=== PATIENT | male | born 1960 | race Caucasian/White ===

== ENCOUNTER 2016-08-18 23:14 | Observation (INO) | payer OTHER ==
[~2016-08-18] VITALS: Ht 175.3 cm; Wt 86.9 kg
[~2016-08-18 23:14] MED LIST: AMBIEN10 MG PO; ASPIR 8181 M1 PO; ATORVASTATIN CA80 MG PO; Aspirin E.C. PO; BRILINTA90 MG PO; DESYREL 150 MG150 MG PO; GEODON80 MG PO; GLUCOPHAGE1000 MG PO; IBUPROFEN800 MG PO; LIPITOR80 MG PO; LISINOPRIL5 MG PO; LOPRESSOR25 MG PO; MOTRIN800 MG PO; NITROSTAT0.4 MG SL; NORCO 5/3251 TABLET PO; NORCO 7.5/321 TABLET PO; SEROQUEL12.5 MG PO; TEGRETOL200 MG PO; ZOLOFT25 MG PO; sleeping med PO
[2016-08-18 23:34] LABS: HEMATOCRIT 36.4 % (38.0-50.0); MCH 32.9 PG (29.0-34.0); MCHC 35.4 G/DL (30.0-36.0); MCV 92.9 FL (86-99); PLATELET COUNT 202 K/uL (156-360); RBC DIS.WIDTH-CV 13.6 % (11.8-14.6); RBC DIS.WIDTH-SD 45.1 % (39-53); RED BLOOD COUNT 3.92 M/uL (4.00-5.50); WHITE BLOOD COUNT 8.2 K/uL (4.1-10.2)
[2016-08-18 23:42] LABS: CHLORIDE 106 mEq/L (99-109); POTASSIUM 3.9 mEq/L (3.7-5.4); SODIUM 138 mEq/L (136-147)
[2016-08-18 23:44] LABS: GLUCOSE 87 mg/dL (70-99)
[2016-08-18 23:46] LABS: ANION GAP 12 MEQ/L (2-14)
[2016-08-18 23:48] LABS: GFR ESTIMATE (CALCULATED) > 59 mL/min/
[2016-08-18 23:49] LABS: UREA NITROGEN (BUN) 15 mg/dL (9-23)
[2016-08-18 23:55] LABS: TROP-I INTERPRETATION NEGATIVE; TROPONIN-I < 0.01 ng/mL (0.0-0.30)
[2016-08-19 02:40] LABS: TOTAL BILIRUBIN 0.3 mg/dL (0.0-1.0)
[2016-08-19 02:41] LABS: ALKALINE PHOSPHATASE 88 IU/L (3-129)
[2016-08-19 02:44] LABS: DIRECT BILIRUBIN 0.1 mg/dL (0.0-0.3)
[2016-08-19 02:45] LABS: LIPASE 36 U/L (1.0-51.0)
[2016-08-19 04:26] VITALS: BP 117/56
[2016-08-19 06:33] LABS: TROP-I INTERPRETATION NEGATIVE; TROPONIN-I < 0.01 ng/mL (0.0-0.30)
[2016-08-19] MEDS ORDERED: NITROSTAT0.4 MG SL (08:22)
[2016-08-19] MEDS ORDERED: LOPRESSOR25 MG PO (08:22)
[2016-08-19] MEDS ORDERED: LIPITOR80 MG PO (08:22)
[2016-08-19] MEDS ORDERED: LISINOPRIL5 MG PO (08:23)
[2016-08-19] MEDS ORDERED: SEROQUEL12.5 MG PO (08:23)
[2016-08-19] MEDS ORDERED: ASPIR 8181 M1 PO (08:23)
[2016-08-19] MEDS ORDERED: GLUCOPHAGE1000 MG PO (08:24)
[2016-08-19 08:48] VITALS: BP 160/77
== END 2016-08-19 08:57 | disposition left against medical advice (07) ==
LOC: EME → EDBD 23:14 → EME 23:14 → EDOF 08-19 02:08 → 5WEST 08-19 02:53
PROVIDERS: Emergency Medicine; Hospitalist
DX: R07.9 Chest pain, unspecified (principal); I25.10 Atherosclerotic heart disease of native coronary artery without angina pectoris; I25.82 Chronic total occlusion of coronary artery; I25.2 Old myocardial infarction; Z98.61 Coronary angioplasty status; I10 Essential (primary) hypertension; E78.5 Hyperlipidemia, unspecified; E11.9 Type 2 diabetes mellitus without complications; J44.9 Chronic obstructive pulmonary disease, unspecified; F17.210 Nicotine dependence, cigarettes, uncomplicated; Z91.19 Patient's noncompliance with other medical treatment and regimen; Z59.0 Homelessness; Z82.49 Family history of ischemic heart disease and other diseases of the circulatory system; Z82.0 Family history of epilepsy and other diseases of the nervous system; Z80.9 Family history of malignant neoplasm, unspecified
CPT/HCPCS: 71020; 80048; 80076; 82948; 83690; 83880; 84484; 85027; 93005; 99281; 99285; G0378; J1644; J1815

== ENCOUNTER 2016-09-10 04:49 | Observation (INO) | payer OTHER ==
[~2016-09-10] VITALS: Ht 172.7 cm; Wt 87.6 kg
[2016-09-10 05:19] LABS: CHLORIDE 105 mEq/L (99-109); SODIUM 139 mEq/L (136-147)
[2016-09-10 05:21] LABS: GLUCOSE 162 mg/dL (70-99)
[2016-09-10 05:22] LABS: ANION GAP 11 MEQ/L (2-14)
[2016-09-10 05:25] LABS: GFR ESTIMATE (CALCULATED) > 59 mL/min/
[2016-09-10 05:26] LABS: HEMATOCRIT 37.3 % (38.0-50.0); MCHC 34.6 G/DL (30.0-36.0); MCV 92.6 FL (86-99); MEAN PLAT.VOLUME 9.2 uM^3 (9.0-12.4); PLATELET COUNT 215 K/uL (156-360); RBC DIS.WIDTH-CV 12.5 % (11.8-14.6); RBC DIS.WIDTH-SD 40.9 % (39-53); RED BLOOD COUNT 4.03 M/uL (4.00-5.50); UREA NITROGEN (BUN) 11 mg/dL (9-23); WHITE BLOOD COUNT 8.8 K/uL (4.1-10.2)
[2016-09-10 05:29] LABS: TROP-I INTERPRETATION NEGATIVE; TROPONIN-I 0.01 ng/mL (0.0-0.30)
[2016-09-10 11:59] VITALS: BP 151/54
== END 2016-09-10 12:00 | disposition left against medical advice (07) ==
LOC: EME 04:49 → EDOF 05:53
PROVIDERS: Emergency Medicine
DX: I25.119 Atherosclerotic heart disease of native coronary artery with unspecified angina pectoris (principal); I25.82 Chronic total occlusion of coronary artery; Z98.61 Coronary angioplasty status; E11.9 Type 2 diabetes mellitus without complications; I10 Essential (primary) hypertension; E78.5 Hyperlipidemia, unspecified; F17.210 Nicotine dependence, cigarettes, uncomplicated; J44.9 Chronic obstructive pulmonary disease, unspecified; Z82.49 Family history of ischemic heart disease and other diseases of the circulatory system; Z82.0 Family history of epilepsy and other diseases of the nervous system; Z59.0 Homelessness
CPT/HCPCS: 71020; 80048; 83880; 84484; 85027; 93005; 99281; 99285; G0378; J1644; J7030

== ENCOUNTER 2016-12-01 02:12 | Observation (INO) | payer OTHER ==
[~2016-12-01] VITALS: Ht 175.3 cm; Wt 90.5 kg
[2016-12-01 02:59] LABS: HEMATOCRIT 38.5 % (38.0-50.0); MCH 29.8 PG (29.0-34.0); MCV 87.5 FL (86-99); MEAN PLAT.VOLUME 9.6 uM^3 (9.0-12.4); PLATELET COUNT 192 K/uL (156-360); RBC DIS.WIDTH-CV 13.3 % (11.8-14.6); RBC DIS.WIDTH-SD 42.9 % (39-53); WHITE BLOOD COUNT 8.5 K/uL (4.1-10.2)
[2016-12-01 03:10] LABS: CHLORIDE 103 mEq/L (99-109); POTASSIUM 3.7 mEq/L (3.7-5.4); SODIUM 135 mEq/L (136-147)
[2016-12-01 03:13] LABS: GLUCOSE 245 mg/dL (70-99)
[2016-12-01 03:14] LABS: ANION GAP 10 MEQ/L (2-14)
[2016-12-01 03:15] LABS: TOTAL BILIRUBIN 0.4 mg/dL (0.0-1.0)
[2016-12-01 03:16] LABS: ALKALINE PHOSPHATASE 81 IU/L (3-129); GFR ESTIMATE (CALCULATED) > 59 mL/min/; INTER. NORMALIZED RATIO 1.2; PROTHROMBIN TIME 12.2 (9.2-11.2); PTT 26.9 (25-32)
[2016-12-01 03:17] LABS: UREA NITROGEN (BUN) 19 mg/dL (9-23)
[2016-12-01 03:18] LABS: TROP-I INTERPRETATION NEGATIVE; TROPONIN-I < 0.01 ng/mL (0.0-0.30)
[2016-12-01 03:20] LABS: LIPASE 38 U/L (1.0-51.0)
[2016-12-01] MEDS ORDERED: LISINOPRIL5 MG PO (07:19)
[2016-12-01] MEDS ORDERED: ATORVASTATIN CA80 MG PO (07:19)
[2016-12-01] MEDS ORDERED: LO-DOSE ASPIRIN81 M2 PO (07:20)
[2016-12-01] MEDS ORDERED: ISOSORBIDE MONO30 MG PO (07:21)
[2016-12-01] MEDS ORDERED: CARVEDILOL12.5 MG PO (07:21)
[2016-12-01 08:00] VITALS: BP 116/58
[2016-12-01] MEDS ORDERED: ISOSORBIDE MONO60 MG PO (09:27)
== END 2016-12-01 11:11 | disposition left against medical advice (07) ==
LOC: EME → EDBD 02:12 → EDOF 06:55 → 5WEST 07:38
PROVIDERS: Emergency Medicine
DX: R07.9 Chest pain, unspecified (principal); I25.10 Atherosclerotic heart disease of native coronary artery without angina pectoris; I25.82 Chronic total occlusion of coronary artery; I25.5 Ischemic cardiomyopathy; E11.65 Type 2 diabetes mellitus with hyperglycemia; I10 Essential (primary) hypertension; I25.2 Old myocardial infarction; F17.200 Nicotine dependence, unspecified, uncomplicated; Z95.5 Presence of coronary angioplasty implant and graft; F31.9 Bipolar disorder, unspecified; Z59.0 Homelessness; E78.00 Pure hypercholesterolemia, unspecified
CPT/HCPCS: 71020; 80053; 83690; 84484; 85027; 85610; 85730; 93005; 99281; 99284; G0378; J1650; J1815; J2270; J2405; J7030